=== PATIENT | female | born 1990 | race Caucasian/White ===

== ENCOUNTER 2022-05-11 02:35 | Emergency (ER) | payer MEDICAID ==
[~2022-05-11] VITALS: Ht 165.1 cm; Wt 122.7 kg
[~2022-05-11 02:35] MED LIST: ALPR0.25; NO HOME MEDS
[2022-05-11 03:26] LABS: Urine Bacteria FEW /hpf (None Seen); Urine Blood Negative /uL (Negative); Urine Specific Gravity 1.007 (1.001-1.035); Urine WBC 3 /hpf (0 - 5)
[2022-05-11 03:32] LABS: Eosinophils # (auto) 0.2 10 ^3/uL (0-0.8); Monocytes # (auto) 0.6 10 ^3/uL (0-1.3); Neutrophils # (auto) 4.5 10 ^3/uL (1.6-8.6); White Blood Cell 8.1 10^3/uL (4.4-10.8)
[2022-05-11 03:34] LABS: Basophils # (auto) 0 10 ^3/uL (0-0.2); Basophils % (auto) 0.5 % (0.0-2.0); Eosinophils % (auto) 2.3 % (0.0-7.0); Hematocrit 36.1 % (36.0-46.0); Hemoglobin 12.2 g/dL (12.2-16.2); Lymphocytes # (auto) 2.8 10 ^3/uL (0.4-5.4); Lymphocytes % (auto) 34.4 % (10.0-50.0); Mean Corpuscular Hemoglobin 25.8 pg (28.0-32.0); Mean Corpuscular Hgb Conc. 33.8 g/dL (32.0-36.0); Mean Corpuscular Volume 76.3 fL (80.0-100.0); Neutrophils % (auto) 55.8 % (37.0-80.0); Nucleated Red Blood Cells % 0.1 %; Red Blood Cells 4.73 10^6/uL (4.0-5.20); Red Cell Distribution Width 18.4 % (11.8-14.3)
[2022-05-11 03:46] LABS: INR 0.88 (0.9-1.15)
[2022-05-11 03:49] LABS: Albumin 3.6 g/dL (3.4-5.0); Calcium 9.4 mg/dL (8.5-10.1); Magnesium 1.8 mg/dL (1.6-2.6); Potassium 3.5 mmol/L (3.5-5.1)
[2022-05-11 03:51] LABS: Bilirubin, Total 0.3 mg/dL (0.2-1.0)
[2022-05-11] MEDS ORDERED: MECLIZINE HCL 25 MG TAB PO ONE (05:30)
[2022-05-11] MEDS ORDERED: LACTATED RINGER'S 1,000 ML IV ONE (05:30)
[2022-05-11] MEDS ORDERED: MECL25TA18 PO (06:55)
[2022-05-11] MEDS ORDERED: AMOX500T86 PO (06:55)
[2022-05-11 07:22] VITALS: BP 125/81
== END 2022-05-11 07:27 | disposition home or self-care (01) ==
LOC: ER 02:35 → EDBD 02:35 → ER 07:27
DX: R42 Dizziness and giddiness (principal); H66.91 Otitis media, unspecified, right ear; E11.65 Type 2 diabetes mellitus with hyperglycemia; Z79.899 Other long term (current) drug therapy
CPT/HCPCS: 36415; 71045; 80053; 81001; 81025; 83735; 83880; 84484; 85025; 85610; 85730; 93005; 96360; 96361; 99285; J7120; J8597

== ENCOUNTER 2022-05-14 23:55 | Emergency (ER) | payer MEDICAID ==
[~2022-05-14] VITALS: Ht 165.1 cm; Wt 126.7 kg
[~2022-05-14 23:55] MED LIST changes: +AMOX500T86 PO; +MECL25TA18 PO
[2022-05-15 00:52] LABS: Eosinophils # (auto) 0.2 10 ^3/uL (0-0.8); Hematocrit 38.1 % (36.0-46.0); Monocytes # (auto) 0.6 10 ^3/uL (0-1.3)
[2022-05-15 00:54] LABS: Basophils # (auto) 0 10 ^3/uL (0-0.2); Basophils % (auto) 0.5 % (0.0-2.0); Eosinophils % (auto) 2.1 % (0.0-7.0); Hemoglobin 12.2 g/dL (12.2-16.2); Lymphocytes % (auto) 20.7 % (10.0-50.0); Mean Corpuscular Hemoglobin 24.7 pg (28.0-32.0); Mean Corpuscular Volume 77.2 fL (80.0-100.0); Monocytes % (auto) 6.2 % (0.0-12.0); Neutrophils # (auto) 6.8 10 ^3/uL (1.6-8.6); Neutrophils % (auto) 70.5 % (37.0-80.0); Nucleated Red Blood Cells % 0.1 %; Red Blood Cells 4.93 10^6/uL (4.0-5.20); Red Cell Distribution Width 18.5 % (11.8-14.3); White Blood Cell 9.6 10^3/uL (4.4-10.8)
[2022-05-15 01:08] LABS: Albumin 3.6 g/dL (3.4-5.0); BUN/Creatinine Ratio 18.5; Calcium 9.6 mg/dL (8.5-10.1); Potassium 3.8 mmol/L (3.5-5.1)
[2022-05-15 01:10] LABS: Bilirubin, Total 0.3 mg/dL (0.2-1.0); Total Protein 7.8 g/dL (6.4-8.2)
[2022-05-15] MEDS ORDERED: PERCOT PO (07:48)
[2022-05-15] MEDS ORDERED: CIPR-173 PO (07:48)
[2022-05-15 08:24] VITALS: BP 118/65
== END 2022-05-15 08:42 | disposition home or self-care (01) ==
LOC: ER 23:57
DX: K52.9 Noninfective gastroenteritis and colitis, unspecified (principal); E11.9 Type 2 diabetes mellitus without complications
CPT/HCPCS: 36415; 74176; 80053; 83690; 85025